=== PATIENT | female | born 1990 | race American Indian/Alaskan Native ===

== ENCOUNTER 2017-07-22 04:14 | Emergency (ER) | payer BC ==
[2017-07-22 04:18] VITALS: BP 140/97
[2017-07-22] MEDS ORDERED: MOTRIN PO ONE (07:43)
[2017-07-22] MEDS ORDERED: TESSALON PERLES PO ONE (07:43)
[2017-07-22] MEDS ORDERED: LIDOCAINE VISCOUS 2% MM NR (07:45)
== END 2017-07-22 07:46 | disposition left against medical advice (07) ==
LOC: ED 04:14
DX: R07.9 Chest pain, unspecified (principal); Z53.21 Procedure and treatment not carried out due to patient leaving prior to being seen by health care provider
CPT/HCPCS: 87116; 87430